=== PATIENT | male | born 1955 | race Caucasian/White ===

== ENCOUNTER 2021-03-05 06:38 | Outpatient (REF) | payer MEDICARE, SELFPAY ==
[2021-03-05 11:54] LABS: Alanine Aminotransferase 9 U/L (0-40); Albumin Level 4.4 g/dL (3.5-5.0); Alkaline Phosphatase 63 U/L (39-117); Anion Gap 17 (12-20); Aspartate Amino Transferase 18 U/L (5-37); Bilirubin Total 0.4 mg/dL (0.0-1.0); Blood Urea Nitrogen 21 mg/dL (9-16); Calcium 9.5 mg/dL (8.4-10.2); Carbon Dioxide 24 mmol/L (22-29); Chloride 106 mmol/L (96-108); Cholesterol 223 mg/dL; Estimated Glomerular Filt Rate > 60; Glucose Fasting 89 mg/dL (60-99); HDL Cholesterol 39 mg/dL; LDL Cholesterol Calculated 154 mg/dl; Potassium 5.3 mmol/L (3.3-5.1); Sodium 142 mmol/L (135-145); Triglycerides 150 mg/dL
[2021-03-05 12:05] LABS: Prostate Specific Antigen Scr 1.94 ng/mL (<0.05-4.0); TSH reflex Free T4 6.37 uIU/mL (0.32-4.0)
[2021-03-05 12:37] LABS: Free T4 (Free Thyroxine) 1.02 ng/dL (0.71-1.85)
== END 2021-03-05 06:39 | disposition home or self-care (01) ==
LOC: HO.HMGCLDS 06:38
PROVIDERS: PCP Nurse Practitioner Family; Visit Provider Nurse Practitioner Family
DX: Z00.00 Encounter for general adult medical examination without abnormal findings (principal); Z12.5 Encounter for screening for malignant neoplasm of prostate
CPT/HCPCS: 36415; 80053; 80061; 84153; 84439; 84443

== ENCOUNTER 2021-03-09 06:08 | Outpatient (REF) | payer MEDICARE, SELFPAY ==
[2021-03-09 11:34] LABS: Anion Gap 16 (12-20); Carbon Dioxide 26 mmol/L (22-29); Chloride 106 mmol/L (96-108); Potassium 5.7 mmol/L (3.3-5.1); Sodium 142 mmol/L (135-145)
[2021-03-09 11:53] LABS: TSH reflex Free T4 4.35 uIU/mL (0.32-4.0)
[2021-03-09 12:27] LABS: Free T4 (Free Thyroxine) 0.93 ng/dL (0.71-1.85)
== END 2021-03-09 06:09 | disposition home or self-care (01) ==
LOC: HO.HMGCLDS 06:08
PROVIDERS: PCP Nurse Practitioner Family; Visit Provider Nurse Practitioner Family
DX: E87.5 Hyperkalemia (principal); R94.6 Abnormal results of thyroid function studies
CPT/HCPCS: 36415; 80051; 84439; 84443

== ENCOUNTER 2021-03-16 06:57 | Outpatient (REF) | payer MEDICARE, SELFPAY ==
[2021-03-16 11:51] LABS: Anion Gap 12 (12-20); Carbon Dioxide 27 mmol/L (22-29); Chloride 107 mmol/L (96-108); Potassium 4.8 mmol/L (3.3-5.1); Sodium 141 mmol/L (135-145)
== END 2021-03-16 06:58 | disposition home or self-care (01) ==
LOC: HO.HMGCLDS 06:57
PROVIDERS: PCP Nurse Practitioner Family; Visit Provider Nurse Practitioner Family
DX: E87.5 Hyperkalemia (principal)
CPT/HCPCS: 36415; 80051

== ENCOUNTER 2022-04-02 15:11 | Outpatient (REF) | payer MEDICARE, SELFPAY ==
--- NOTE | ~2022-04-02 | CT_ITS ---
EXAMINATION: CT CHEST SCREENING CLINICAL INFORMATION: Nicotine dependence. COMPARISON: None. TECHNIQUE: Multidetector volumetric CT imaging of the chest is performed without contrast using low dose technique. Additional 2D coronal and sagittal reformatted images and axial 3D maximum intensity projection (MIP) images are generated on the CT workstation. This CT examination was performed using dose optimization techniques as appropriate, variously including the following: *Automated exposure control *Adjustment of mA and/or kV according to patient size (this includes techniques or standardized protocols for targeted exams where dose is matched to indication/reason for exam; i.e. extremities or head) *Use of iterative reconstruction technique DLP: 59 mGy-cm FINDINGS: LUNGS: There is diffuse centrilobular emphysema. There is a 4 mm nodule right upper lobe anterior segment image 229/6, 4 mm nodule left upper lobe anterior segment axial image 259/6. No additional nodules, mass or consolidation. Minimal atelectatic changes are seen left lower lobe posterior basal segment. MEDIASTINUM: The central trachea and the bronchi are widely patent. The thyroid lobes are symmetric and normal. No abnormal-sized lymph nodes or mass seen. The heart size and the great vessels are normal caliber. No pericardial effusion seen. There is trace coronary artery calcifications present. PLEURA: There is no pleural effusion, mass or thickening. AXILLA: The axilla and the chest wall is unremarkable. UPPER ABDOMEN: Visualized liver, spleen, pancreas and bilateral adrenal glands are unremarkable. OSSEOUS STRUCTURES: No aggressive lytic or sclerotic process seen. There is mild ventral spondylosis lower dorsal and upper lumbar spine. CT/CT lung screening IMPRESSION: Centrilobular emphysema without any acute process. There are 2 small shotty lymph nodes as described above. Consider follow-up chest in one year as per Fleischner guidelines and patient risk factors. ASSESSMENT: Lung-RADS category 2: Benign RECOMMENDATION: Low-dose annual CT chest
== END 2022-04-02 15:12 | disposition home or self-care (01) ==
LOC: HO.CT 15:11
PROVIDERS: PCP Nurse Practitioner Family; Visit Provider Physician Assistant Medical
DX: Z12.2 Encounter for screening for malignant neoplasm of respiratory organs (principal); F17.210 Nicotine dependence, cigarettes, uncomplicated
CPT/HCPCS: 71271; G0296

== ENCOUNTER 2022-07-02 08:11 | Outpatient (REF) | payer MEDICARE, SELFPAY ==
[2022-07-02 11:40] LABS: Hematocrit 44.8 % (42.0-52.0); Hemoglobin 14.8 g/dl (14.0-18.0); Mean Corpuscular Hemoglobin 29.6 pg (27.0-33.0); Mean Corpuscular Volume 89.6 fL (80.0-98.0); Platelet Count 406 X10*3/uL (160-400); Red Cell Distribution Width 12.6 % (11.0-16.0); White Blood Count 7.3 X10*3/uL (4.8-10.8)
[2022-07-02 11:51] LABS: Appearance Urine Clear; Color Urine Yellow; Glucose Urine UA Negative (Negative); Leukocyte Esterase Urine Negative (Negative); Nitrite Urine Negative (Negative); Urine Blood Negative (Negative); Urine Ketones Negative (Negative); Urine Protein Negative (Neg-Trace)
== END 2022-07-02 08:12 | disposition home or self-care (01) ==
LOC: HO.HMGCLDS 08:11
PROVIDERS: PCP Nurse Practitioner Family; Visit Provider Nurse Practitioner Family
DX: Z00.00 Encounter for general adult medical examination without abnormal findings (principal)
CPT/HCPCS: 36415; 81003; 85027

== ENCOUNTER 2022-07-03 06:48 | Outpatient (REF) | payer MEDICARE, SELFPAY ==
[2022-07-03 12:26] LABS: Alanine Aminotransferase 10 U/L (0-40); Albumin Level 4.4 g/dL (3.5-5.0); Alkaline Phosphatase 52 U/L (39-117); Anion Gap 16 (12-20); Aspartate Amino Transferase 16 U/L (5-37); Bilirubin Total 0.2 mg/dL (0.0-1.0); Blood Urea Nitrogen 20 mg/dL (9-16); Calcium 9.8 mg/dL (8.4-10.2); Carbon Dioxide 27 mmol/L (22-29); Chloride 104 mmol/L (96-108); Cholesterol 234 mg/dL; Estimated Glomerular Filt Rate > 60; Glucose Fasting 97 mg/dL (60-99); HDL Cholesterol 50 mg/dL; LDL Cholesterol Calculated 166 mg/dl; Lipase 66 U/L (8-78); Potassium 5.8 mmol/L (3.3-5.1); Sodium 141 mmol/L (135-145); Triglycerides 94 mg/dL
[2022-07-03 12:37] LABS: TSH reflex Free T4 5.28 uIU/mL (0.32-4.0)
[2022-07-03 13:21] LABS: Free T4 (Free Thyroxine) 0.98 ng/dL (0.71-1.85)
== END 2022-07-03 06:49 | disposition home or self-care (01) ==
LOC: HO.HMGCLDS 06:48
PROVIDERS: PCP Nurse Practitioner Family; Visit Provider Nurse Practitioner Family
DX: Z00.00 Encounter for general adult medical examination without abnormal findings (principal); R10.30 Lower abdominal pain, unspecified; Z12.5 Encounter for screening for malignant neoplasm of prostate
CPT/HCPCS: 36415; 80053; 80061; 83690; 84153; 84439; 84443

== ENCOUNTER 2022-07-30 15:25 | Outpatient (REF) | payer MEDICARE, SELFPAY ==
[2022-07-30 16:55] LABS: Anion Gap 13 (12-20); Carbon Dioxide 27 mmol/L (22-29); Chloride 104 mmol/L (96-108); Potassium 5.3 mmol/L (3.3-5.1); Sodium 139 mmol/L (135-145)
== END 2022-07-30 15:26 | disposition home or self-care (01) ==
LOC: HO.HMGCLDS 15:25
PROVIDERS: PCP Nurse Practitioner Family; Visit Provider Nurse Practitioner Family
DX: E87.5 Hyperkalemia (principal)
CPT/HCPCS: 36415; 80051

== ENCOUNTER 2022-08-21 09:50 | Outpatient (REF) | payer MEDICARE, SELFPAY ==
[2022-08-21 11:51] LABS: Anion Gap 10 (12-20); Carbon Dioxide 27 mmol/L (22-29); Chloride 97 mmol/L (96-108); Cholesterol 230 mg/dL; HDL Cholesterol 39 mg/dL; LDL Cholesterol Calculated 173 mg/dl; Potassium 4.3 mmol/L (3.3-5.1); Sodium 130 mmol/L (135-145); Triglycerides 91 mg/dL
== END 2022-08-21 09:51 | disposition home or self-care (01) ==
LOC: HO.HMGCLDS 09:50
PROVIDERS: PCP Nurse Practitioner Family; Visit Provider Nurse Practitioner Family
DX: E87.5 Hyperkalemia (principal); E78.5 Hyperlipidemia, unspecified
CPT/HCPCS: 36415; 80051; 80061

== ENCOUNTER 2023-08-19 14:41 | Outpatient (REF) | payer MEDICARE, SELFPAY ==
--- NOTE | ~2023-08-19 | CT_ITS ---
EXAMINATION: CT CHEST LOW-DOSE SCREENING WITHOUT CONTRAST HISTORY: Asymptomatic patient meeting criteria for lung screening. PATIENT PACK-YEAR HISTORY: 51 Current Smoker: Yes If former smoker, years since quitting: COMPARISON: 04/02/2022 TECHNIQUE: Multidetector volumetric non-contrast CT imaging of the chest was performed using low dose screening CT technique. Axial thin section 0.625 mm reformations in soft tissue and lung windows were obtained. Sagittal and coronal reformations were obtained. Axial MIP images were also created and reviewed. RECONSTRUCTED WIDTH: 1.25 mm x 1.25 mm TOTAL EXAM DLP: 59 mGy-cm CTDIvol: 1.30 L mGy FINDINGS: LUNGS: Mild to moderate centrilobular emphysema. 3 mm left upper lobe nodule on image 247. Central bronchial wall thickening. No focal consolidation. Central airways are patent. PLEURA: No pleural effusion. LYMPH NODES: No bulky mediastinal, hilar or axillary lymphadenopathy. MEDIASTINUM: Heart size is normal. Great vessels are of normal caliber. No pericardial effusion. CORONARY ARTERY CALCIFICATIONS: Mild. CHEST WALL/BREASTS: No acute abnormality. UPPER ABDOMEN: This study was performed without contrast and with lower than standard dose, reducing the sensitivity for detection of small lesions in the upper abdomen. OSSEOUS STRUCTURES: No destructive bone lesions. CT/CT lung screening IMPRESSION: No suspicious pulmonary nodule. LUNG-RADS CATEGORY ASSESSMENT: 2. Benign appearance or behavior. Nodules with a very low likelihood of becoming a clinically active cancer due to size or lack of growth. Continue annual screening with low-dose CT in 12 months. Probability of malignancy less than 1%. INCIDENTAL FINDINGS (S CATEGORY): Finding: No incidental findings. Significance category: Normal or normal variant. RECOMMENDATION: Low dose lung CT. overall in 1 year. Visual estimate of coronary calcified plaque burden: Mild. However, this exam cannot replace a dedicated cardiac CT calcium score for accurate assessment. LUNG-RADS CATEGORY: 2 -- BENIGN
== END 2023-08-19 14:42 | disposition home or self-care (01) ==
LOC: HO.CT 14:41
PROVIDERS: PCP Nurse Practitioner Family; Visit Provider Physician Assistant Medical
DX: Z12.2 Encounter for screening for malignant neoplasm of respiratory organs (principal); F17.210 Nicotine dependence, cigarettes, uncomplicated
CPT/HCPCS: 71271

== ENCOUNTER 2024-03-29 12:27 | Outpatient (AMB) | payer MEDICARE, SELFPAY ==
--- NOTE | 2024-03-29 12:32 | MHC.PC.OV ---
Vital Signs 03/29/24 12:35 Height 5 ft 7 in Weight 158 lb BMI 24.7 BP 122/70 Blood Pressure Location Rt brachial Position Sitting Pulse 96 Pulse Source Pulse Oximeter Pulse Oximetry (%) 96 Oxygen Delivery Method Room Air Intake Visit Reasons: Annual PE Intake Note: Patient here for physical exam. Colon: 2020 due 2030 Allergies No Known Allergies Allergy (Verified 03/29/24 12:36) Tobacco use date assessed: 03/29/24 Dental Screening Dental Screen Date: 03/29/24 Did you have a dental visit in the last 12 months?: Yes Did you have a dental problem in the last 6 months where you did not have access to dental care?: No Was dental information given to patient?: Patient has dentist HPI Annual PE HPI Details Pt is here for a PE. Will order labs. Colon screen is up to date. Due for PSA, will order. Denies dribbling with urination, weak stream, and frequent nocturia. Pt is a smoker, goes for low-dose CTs. Pt has a cystic lesion above his left testicle. Will order US. [facility] Medical History Personal history of nicotine dependence History of diverticulitis Surgical History History of colectomy History of tonsillectomy History of colonoscopy Family History Father No problems noted. Mother Stroke Social History Housing: House Alcohol intake: current Alcohol intake frequency: does not drink Patient Tobacco Use Status: Current everyday Tobacco user Tobacco use type: Cigarette Cigarette Packs Per Day: 1 Cigarettes Per Day: 20 Years Smoked: (onset 15, 1ppd x 51yrs, 50pyh) e-Cigarette/Vaping Use: Never Used service: No Current occupational status: retired Cognitive needs: No Hearing needs: No Vision needs: No Questionnaire PHQ-9 Over the last 2 weeks, how often have you been bothered by any of the following problems? 1. Little interest or pleasure in doing things: not at all 2. Feeling down, depressed, or hopeless: not at all 3. Trouble falling or staying asleep, or sleeping too much: not at all 4. Feeling tired or having little energy: several days 5. Poor appetite or overeating: not at all 6. Feeling bad about yourself - or that you are a failure or have let yourself or your family down: not at all 7. Trouble concentrating on things, such as reading the newspaper or watching television: several days 8. Moving or speaking so slowly that other people could have noticed. Or the opposite - being so fidgety or restless that you have been moving around a lot more than usual: not at all 9. Thoughts that you would be better off or of hurting yourself in some way: not at all Total score: 2 Depression Screening Interpretation: Negative Depression Screening Done: Yes 76950 - PHQ-9 Billing: Yes Source: Developed by Drs. Daniel George, Henrietta Hernandez, Tomy Ren and colleagues, with an educational martita from [employer]. Thrive Questionnaire Date Thrive assessed: 03/29/24 I am a: Patient What is your living situation today?: I have a steady place to live Within the past 12 months, did the food you bought not last and you didn't have the money to get more?: Never true Within the past 12 months, did you worry whether your food would run out before you got money to buy more?: Never true Do you have trouble getting transportation to medical appointments?: No Do you have trouble paying your heating and electricity bill?: No Do you have trouble taking care of your child, family member or friend?: No Do you have trouble with day-to-day activities such as bathing, preparing meals, shopping, managing finances, etc.?: No Are you currently unemployed and looking for a job?: No Are you interested in more education?: No Currently or been in a relationship where the following occur: No concerns reported THRIVE Score: 0 AUDIT C Alcohol Use Questionnaire (AUDIT-C) 1. How often do you have a drink containing alcohol?: Never 3. How often do you have six or more drinks on one occasion?: Never Total Score: 0 Score Reviewed/Action Taken: No GRACE-7 AMB Questionnaire GRACE-7 Date GRACE - 7 assessed: 03/29/24 Feeling nervous, anxious, or on edge: 1 = Several days Not being able to stop or control worryin = Several days Worrying too much about different things: 1 = Several days Trouble relaxin = Several days Being so restless that it is hard to sit still: 0 = Not at all Becoming easily annoyed or irritable: 0 = Not at all Feeling afraid as if something awful might happen: 0 = Not at all Total GRACE-7 score (0-4 normal; 5-9 mild; 10-14 moderate; 15-21 severe): 4 Source: Developed by Drs. Daniel George, Henrietta Hernandez, Tomy Ren and colleagues, with an educational martita from [employer]. GRACE-7 Assessment Billing GRACE-7 Assessment Tool: GRACE-7 Assessment 77136 Review of Systems Const Denies chills and Denies fever(s) Eyes Denies blurry vision ENT Denies vertigo, Denies dizziness and Denies sore throat Card Denies chest pain at rest, Denies chest pain with activity, Denies diaphoresis, Denies dyspnea and Denies dyspnea on exertion Resp Denies cough, Denies dyspnea, Denies dyspnea on exertion and Denies wheezing GI Denies abdominal pain, Denies melena, Denies hematochezia, Denies constipation, Denies diarrhea and Denies loose stools Denies hematuria Musc Denies numbness and Denies tingling Skin/Breast Denies lesions Neuro Denies vertigo, Denies dizziness, Denies numbness and Denies tingling Psych Denies anxiety, Denies depression, Denies homicidal ideation, Denies suicidal ideation and Denies other (substance abuse) Aller/Immun Denies wheezing Physical exam (Primary Care) Vital Signs: Last Vital Signs Pulse 96 03/29/24 12:35 BP 122/70 03/29/24 12:35 Pulse Ox 96 03/29/24 12:35 Oxygen Delivery Method Room Air 03/29/24 12:35 BMI result Body Mass Index 24.7 Tobacco/Smoking Status: Tobacco use Status Tobacco use date assessed 03/29/24 03/29/24 12:38 Patient Tobacco Use Status Current everyday Tobacco 03/29/24 12:33 Tobacco use type Cigarette 03/29/24 12:33 e-Cigarette/Vaping Use Never Used 03/29/24 12:33 PHQ-9: PHQ-9 Score PHQ-9: Total score 2 03/29/24 13:16 Depression Screening Interpretation: Negative Thrive Assessment: Date of Thrive Assessment Date Thrive assessed 03/29/24 03/29/24 13:16 Currently or been in a relationship where the following occur: No concerns reported Const General: cooperative Nutritional Appearance: well nourished Orientation/consciousness: patient oriented x3 HENMT Head: Yes normal to inspection, Yes normocephalic and Yes atraumatic Ears: TM's normal bilaterally Eyes General: appearance normal, both eyes and all related structures Alignment and Position: alignment normal and position normal Neck Neck: Yes normal visual inspection and Yes no lymphadenopathy Thyroid: Thyroid normal Resp Other: lungs slightly diminished though moving air Effort & Inspection: normal respiratory effort Cardio Rate: regular rate Rhythm: regular rhythm Heart sounds: S1 normal heart sound present, S2 normal heart sound present and no murmurs GI Palpation (GI): Soft to palpation and nontender Auscultation: normal bowel sounds Other: cystic lesion above left testicle Male General Exam: Yes normal external exam Penis: normal penis Scrotum: scrotum normal, testes descended bilaterally and no inguinal hernias Testes: no testicular mass Skin Rashes: no rashes Neuro General: patient oriented x3, moves all extremities, no focal motor deficits and deep tendon reflexes 2+ bilaterally Romberg Test: Negative Psych Appearance: grossly normal Mental Status: mental status grossly normal Speech and movement: Normal speech and movement present Affect: normal affect Attitude: cooperative Thought process: Normal thought process present Thought content: Normal thought content present Insight: Good insight present (Psych) Judgement: Good judgement present (Psych) Assessment and Plan Assessment & Plan (1) Encounter for physical examination: Code(s): Z00.00 - Encounter for general adult medical examination without abnormal findings Plan: Labs ordered (2) Screening PSA (prostate specific antigen): Code(s): Z12.5 - Encounter for screening for malignant neoplasm of prostate Plan: PSA ordered (3) Scrotal cyst: Code(s): L72.9 - Follicular cyst of the skin and subcutaneous tissue, unspecified Plan: US ordered Plan The patient agreed to the use of a senior medical director for this encounter. Scribed for TINO So by samantha Lobato scribe, on 03/29/2024 at 12:55 EST. Orders: Orders Complete Blood Count Auto Diff Today Z00.00 - Encounter for general adult medical examination without abnormal findings Comprehensive [place]. Panel Fast Today Z00.00 - Encounter for general adult medical examination without abnormal findings UA CC w/rflx Micro + Cult Today Z00.00 - Encounter for general adult medical examination without abnormal findings Lipid Panel Today Z00.00 - Encounter for general adult medical examination without abnormal findings Prostate Specific Antigen Scr Today Z00.00 - Encounter for general adult medical examination without abnormal findings, Z12.5 - Encounter for screening for malignant neoplasm of prostate TSH reflex Free T4 Today Z00.00 - Encounter for general adult medical examination without abnormal findings US scrotum Today L72.9 - Follicular cyst of the skin and subcutaneous tissue, unspecified Coding Level of Care Code Est Pt Prev Care >65y(72656) Diagnoses Encounter for physical examination Z00.00 Screening PSA (prostate specific antigen) Z12.5 Scrotal cyst L72.9 Additional Codes GRACE-7 Assessment Billing - GRACE-7 Assessment Tool: GRACE-7 Assessment [id number] ([id number])
[2024-03-29 12:35] VITALS: BP 122/70; PULSE 96; O2SAT 96; BMI 24.7
== END 2024-03-29 13:10 | disposition home or self-care (01) ==
PROVIDERS: PCP Nurse Practitioner Family; Visit Provider Nurse Practitioner Family
DX: Z00.00 Encounter for general adult medical examination without abnormal findings (principal); Z12.5 Encounter for screening for malignant neoplasm of prostate; L72.9 Follicular cyst of the skin and subcutaneous tissue, unspecified
CPT/HCPCS: 99397

== ENCOUNTER 2024-05-03 09:09 | Outpatient (REF) | payer MEDICARE, SELFPAY ==
[2024-05-03 13:05] LABS: Appearance Urine Clear; Color Urine Yellow; Glucose Urine UA Negative (Negative); Leukocyte Esterase Urine Negative (Negative); Nitrite Urine Negative (Negative); Specific Gravity - Urine <= 1.005 (1.005-1.025); Urine Blood Negative (Negative); Urine Ketones Negative (Negative); Urine Protein Negative (Neg-Trace)
[2024-05-03 13:07] LABS: MANUAL DIFF FLAG NO
[2024-05-03 13:11] LABS: Basophils Absolute Auto 0.1 X10*3/uL (0.0-0.2); Basophils Percent Auto 0.7 % (0-2); Eosinophils Absolute Auto 0.2 X10*3/uL (0.0-0.4); Eosinophils Percent Auto 2.9 % (0-4); Hematocrit 45.4 % (42.0-52.0); Hemoglobin 15.3 g/dl (14.0-18.0); Imm Gran Abs Auto 0.03 X10*3/uL (0.00-0.03); Imm Gran Pct Auto 0.4 % (0.0-0.4); Lymphocytes Percent Auto 29.5 % (20-40); Mean Corpuscular HGB Conc 33.7 g/dl (31.0-36.0); Mean Corpuscular Hemoglobin 30.5 pg (27.0-33.0); Mean Corpuscular Volume 90.4 fL (80.0-98.0); Mean Platelet Volume 10.7 fL (9.4-12.4); Monocytes Absolute Auto 0.8 X10*3/uL (0.1-1.2); Monocytes Percent Auto 11.3 % (2-11); Neutrophils Absolute Auto 3.8 x10*3/uL (2.0-8.3); Neutrophils Percent Auto 55.2 % (45-73); Platelet Count 386 X10*3/uL (160-400); Red Blood Count 5.02 X10*6/uL (4.60-5.80); Red Cell Distribution Width 13.1 % (11.0-16.0); White Blood Count 6.8 X10*3/uL (4.8-10.8)
[2024-05-03 13:46] LABS: Alanine Aminotransferase 11 U/L (0-40); Albumin Level 4.4 g/dL (3.5-5.0); Alkaline Phosphatase 47 U/L (39-117); Anion Gap 9 (12-20); Aspartate Amino Transferase 17 U/L (5-37); Bilirubin Total 0.4 mg/dL (0.0-1.0); Blood Urea Nitrogen 10 mg/dL (9-16); Calcium 9.1 mg/dL (8.4-10.2); Carbon Dioxide 28 mmol/L (22-29); Chloride 105 mmol/L (96-108); Cholesterol 182 mg/dL (<200); Estimated Glomerular Filt Rate > 60; Glucose Fasting 97 mg/dL (60-99); HDL Cholesterol 46 mg/dL (>40); LDL Cholesterol Calculated 119 mg/dL (<100); Potassium 4.3 mmol/L (3.3-5.1); Sodium 138 mmol/L (135-145); Total Protein 7.3 g/dL (6.5-8.0); Triglycerides 87 mg/dL (<150)
[2024-05-03 13:49] LABS: TSH reflex Free T4 4.69 uIU/mL (0.32-4.0)
[2024-05-03 13:52] LABS: Prostate Specific Antigen Scr 2.13 ng/mL (<0.05-4.0)
[2024-05-03 14:44] LABS: Free T4 (Free Thyroxine) 0.95 ng/dL (0.71-1.85)
== END 2024-05-03 09:10 | disposition home or self-care (01) ==
LOC: HO.HMGCLDS 09:09
PROVIDERS: PCP Nurse Practitioner Family; Visit Provider Nurse Practitioner Family
DX: Z00.00 Encounter for general adult medical examination without abnormal findings (principal); Z12.5 Encounter for screening for malignant neoplasm of prostate
CPT/HCPCS: 36415; 80053; 80061; 81003; 84153; 84439; 84443; 85025

== ENCOUNTER 2024-07-09 09:58 | Outpatient (REF) | payer MEDICARE, SELFPAY | END 2024-07-09 09:59 | disposition home or self-care (01) | LOC: HO.HMGCX 09:58 | PROVIDERS: PCP Nurse Practitioner Family; Visit Provider Nurse Practitioner Family | DX: L72.9 Follicular cyst of the skin and subcutaneous tissue, unspecified (principal) | CPT/HCPCS: 76870 ==

== ENCOUNTER 2024-08-30 08:35 | Outpatient (REF) | payer MEDICARE, SELFPAY | END 2024-08-30 08:36 | disposition home or self-care (01) | LOC: HO.CT 08:35 | PROVIDERS: PCP Nurse Practitioner Family; Visit Provider Physician Assistant Medical | DX: Z12.2 Encounter for screening for malignant neoplasm of respiratory organs (principal); F17.210 Nicotine dependence, cigarettes, uncomplicated | CPT/HCPCS: 71271 ==

== ENCOUNTER → 2024-08-30 08:37 | Outpatient (BNV) | payer MEDICARE, SELFPAY | PROVIDERS: PCP Nurse Practitioner Family; Visit Provider Radiology Diagnostic Radiology | DX: Z12.2 Encounter for screening for malignant neoplasm of respiratory organs (principal); Z87.891 Personal history of nicotine dependence | CPT/HCPCS: 71271 ==

== ENCOUNTER 2025-01-02 13:16 | Outpatient (AMB) | payer MEDICARE, SELFPAY ==
--- NOTE | 2025-01-02 13:21 | MHC.OFFWIV ---
Intake Vital Signs 01/02/25 13:22 Weight 166 lb BP 130/80 Blood Pressure Location Rt brachial Position Sitting Pulse 74 Pulse Source Pulse Oximeter Temp 97.8 F Temp Source Oral Pulse Oximetry (%) 97 Oxygen Delivery Method Room Air Intake Visit Reasons: EP Ear infection, vertigo, chest congestion Intake Note: Patient here for chest congestion, off balance and left ear pain that has been going on for about 2 months. Patient Tobacco Use Status: Current everyday Tobacco user Allergies No Known Allergies Allergy (Verified 01/02/25 13:21) Do you need a note to return to daycare/school/sports/work: No HPI HPI Comments History of Present Illness Details History - The patient is a 69-year-old male presenting with ear pain, dizziness, and cough with phlegm. - Reports left ear pain and dizziness over the past two to three months, with growing concerns about an ear infection. - Experiences ongoing chest congestion with production of phlegm, although denies fever or shortness of breath or wheezing. - Has a history of smoking for 54 years, potentially exacerbating respiratory symptoms. - Inhf-vna-xhuytva medications have been ineffective in alleviating symptoms. Physical Exam General: Cooperative, healthy appearing, comfortable and no acute distress Orientation/consciousness: Patient oriented x3 Limitations: No limitations Head: Normal to inspection Ears: Hearing grossly normal bilaterally, external ears normal, left TM with bulging, erythema, purulence, right TM with scant fluid Nose: Normal external nose present, Normal nares present and No nasal discharge present Face and sinus: Normal facial exam and Yes sinuses nontender Mouth: Normal oral and palatal mucosa present and moist mucous membranes Throat: Yes tonsils normal, Yes uvula midline. Posterior oropharynx erythema Eyes: Appearance normal, both eyes and all related structures Neck: Normal visual inspection Respiratory: Clear to auscultation bilaterally. Normal respiratory effort, able to speak in complete sentences, Actively coughing, no respiratory distress, not tachypneic, no tripod positioning and no use of accessory muscles Cardiovascular: Regular rate and rhythm. Normal S1 and S2 Skin: No rashes or lesions noted Neuro: Patient oriented x3 Extremities: Normal to inspection and Yes no clubbing, cyanosis or edema [facility] Medical History (Updated 01/02/25 @ 13:43 by Angelica Romero PA-C) Nicotine dependence, cigarettes, uncomplicated History of diverticulitis Surgical History History of colectomy History of tonsillectomy History of colonoscopy Family History Father No problems noted. Mother Stroke Social History Housing: House Alcohol intake: current Alcohol intake frequency: does not drink Patient Tobacco Use Status: Current everyday Tobacco user Tobacco use type: Cigarette Cigarette Packs Per Day: 1 Cigarettes Per Day: 20 Years Smoked: (onset 15, 1ppd x 51yrs, 50pyh) e-Cigarette/Vaping Use: Never Used service: No Current occupational status: retired Cognitive needs: No Hearing needs: No Vision needs: No Review of Systems Const All systems reviewed & are unremarkable except as noted in HPI and below Physical Exam Vital Signs: Last Vital Signs Temp 97.8 F 01/02/25 13:22 Pulse 74 01/02/25 13:22 BP 130/80 01/02/25 13:22 Pulse Ox 97 01/02/25 13:22 Oxygen Delivery Method Room Air 01/02/25 13:22 Assessment & Plan Assessment & Plan (1) Otitis media of left ear: Code(s): H66.92 - Otitis media, unspecified, left ear Qualifiers: Otitis media type: mucoid Chronicity: acute Qualified Code(s): H65.192 - Other acute nonsuppurative otitis media, left ear Plan: VSS, pt well appearing and PE remarkable for OM left ear. The patient will commence a seven-day course of Amoxicillin 500 mg twice daily to treat the acute otitis media, focused on addressing both ear infection symptoms and dizziness. Continued use of decongestants like Margot-D is recommended to manage chest congestion associated with chronic tobacco use. The patient may discontinue the antibiotics after five days if symptoms improve; if not, the full course should be completed. Prescriptions have been sent to the specified pharmacy, and the patient has been instructed to observe for symptom resolution and to contact a healthcare provider if symptoms persist. Patient was informed and verbally consented to the use of an ambient scribe for clinic note documentation during this visit Medications: New amoxicillin 875 mg PO Q12H 14 tabs 0RF Coding Level of Care Code Est Pt Level 3 (29664) Diagnoses Acute mucoid otitis media of left ear H65.192 Otitis media type: mucoid Chronicity: acute
[2025-01-02 13:22] VITALS: BP 130/80; PULSE 74; TEMP 36.6; O2SAT 97
--- OUTSIDE RECORDS SUMMARY | 2025-01-02 15:43 | XMS_ITS | Clinical Summary ---
Author Organization [facility] ity Address [address] [place] [address] Care Team Providers Care Pattern Finisher Name Role Phone Unavailable Primary Care Provider Unavailabl e Social History Tobacco Use Types Packs/Day Years Used Date Smoking Tobacco: Never Assessed Sex and Gender Information Value Date Recorded Sex Assigned at Not on file Legal Sex Male 9:41 PM EST Gender Identity Not on file Sexual Orientation Not on file Plan of Treatment Health Maintenance Due Date Last Done Comments DTaP,Tdap,and Td Vaccines (1 - Tdap) 12/19/1974 Pneumococcal Vaccine: 50+ Ye ars (1 of 1 - PCV) 12/19/2005 Zoster Vaccines (1 of 2) 12/19/2005 COVID-19 Vaccine ( - 2023-2 5 season) 2024 Influenza Vaccine (Season Ended) 2025 RSV Immunization Adult Patie nts (1 - 1-dose 75+ series) 12/19/2030 HIB Vaccines Aged Out No longer eligi ble based on patient's age to complete this topic HPV Vaccines Aged Out No longer eligi ble based on patient's age to complete this topic Hepatitis A Vaccines Aged Out No long er eligible based on patient's age to complete this topic Hepatitis B Vaccines Aged Out No long er eligible based on patient's age to complete this topic IPV Vaccines Aged Out No longer eligi ble based on patient's age to complete this topic MMR Vaccines Aged Out No longer eligi ble based on patient's age to complete this topic Meningococcal ACWY Vaccine Aged Out N o longer eligible based on patient's age to complete this topic Meningococcal B Vaccine Aged Out No l onger eligible based on patient's age to complete this topic RSV Immunization Patients Un marvin 20 months Aged Out No longer eligible b ased on patient's age to complete this topic Varicella Vaccines Aged Out No longer eligible based on patient's age to complete this topic
== END 2025-01-02 14:52 | disposition home or self-care (01) ==
PROVIDERS: PCP Nurse Practitioner Family; Visit Provider Physician Assistant
DX: H65.192 Other acute nonsuppurative otitis media, left ear (principal)

== ENCOUNTER → 2025-01-02 13:16 | Outpatient (BNVA) | payer MEDICARE, SELFPAY | PROVIDERS: PCP Nurse Practitioner Family; Visit Provider Physician Assistant | DX: H65.192 Other acute nonsuppurative otitis media, left ear (principal) | CPT/HCPCS: 99212 ==

== ENCOUNTER → 2025-01-11 08:36 | Outpatient (BNVA) | payer MEDICARE, SELFPAY | PROVIDERS: PCP Nurse Practitioner Family ==

== ENCOUNTER 2025-04-17 14:54 | Outpatient (AMB) | payer MEDICARE, SELFPAY ==
--- NOTE | 2025-04-17 15:11 | A.OFFPC_ITS ---
Vital Signs 04/17/25 15:13 Weight 162 lb BP 128/82 Blood Pressure Location Lt brachial Position Sitting Respiration 16 Pulse 88 Pulse Source Pulse Oximeter Pulse Oximetry (%) 96 Oxygen Delivery Method Room Air Intake Visit Reasons: Annual PE Division Director Required: No Accompanied by: Self / Same As Patient Allergies No Known Allergies Allergy (Verified 01/02/25 13:21) Medication List - Last Reconciled 04/17/25 by Jamar Ventura, TAFE TEACHER- amoxicillin-pot clavulanate 875-125 mg 1 tab PO Q12H 10 days clonazepam 1 mg PO DAILY PRN ibuprofen 600 mg PO TID PRN 30 days prednisone 50 mg PO DAILY 6 days rosuvastatin 5 mg PO DAILY 90 days Tobacco use date assessed: 04/17/25 Fall risk assessment: No Falls in past year Last assessed Fall Risk: 04/17/25 Dental Screening Dental Screen Date: 04/17/25 Did you have a dental visit in the last 12 months?: Yes Did you have a dental problem in the last 6 months where you did not have access to dental care?: No Was dental information given to patient?: Patient has dentist HPI Annual PE HPI Details History of Present Illness The patient is a 69-year-old male presenting with a physical exam. He reports polyuria, potentially linked to increased coffee intake. The patient has an artificial eardrum on the left side with reported pressure and erythema, raising concerns for infection. A large cyst superior to the left testicle has been previously assessed via ultrasound. He smokes and participates in regular low-dose CT scans for lung cancer screening, with his colon cancer screening current. Health Maintenance - PSA test planned for prostate cancer s creening - Regular low-dose CT scans for lung can cer screening - Colon cancer screening is up to date Social History - Smokes cigarettes - Increased coffee consumption Review of Systems - Cardiovascular: Denies chest pain - Respiratory: Denies increased shortnes s of breath - Gastrointestinal: Denies abdominal tabby n, constipation, diarrhea - Genitourinary: Reports polyuria - Otolaryngological: Reports pressure in left ear -denies any si or hi, denies any fevers, chills, n/v Physical Exam General: Cooperative, healthy appearing, comfortable, no acute distress and well developed Orientation: Patient oriented x3 Limitations: No limitations Head: Normal to inspection Ears: Hearing grossly normal bilaterally, artificial eardrum left, erythematous, treating for ear infection Nose: Normal external nose present Face and sinus: Normal facial exam Eyes: Appearance normal, both eyes and all related structures Neck: Normal visual inspection and Yes full ROM Respiratory: Slightly diminished bilaterally, able to speak in complete sentences Cardiovascular: Regular rate and rhythm. Normal S1 and S2 GI: Normal to inspection. Soft to palpation and nontender : Large cyst superior to left testicle, and no hernias appreciated Skin: No rashes or lesions noted Neuro: Patient oriented x3 Extremities: Normal to inspection Results - Ultrasound: Large cyst superior to lef t testicle, previously evaluated Plan The patient will have a PSA test for prostate cancer screening. Treatment with Augmentin and prednisone is planned for the left ear with artificial eardrum to address suspected infection and alleviate pressure. The large cyst superior to the left testicle has been previously evaluated, and no further action is required at this time. Smoking cessation support and regular low-dose CT scans for lung cancer screening will continue. Discussion Notes I discussed with the patient the need for a PSA test as part of routine prostate cancer screening. We reviewed the treatment plan for his left ear, including the use of Augmentin and prednisone to address the suspected infection and alleviate pressure. The large cyst superior to the left testicle has been previously evaluated, and no further intervention is necessary at this time. We also discussed the importance of smoking cessation and the continuation of regular low-dose CT scans for lung cancer screening. Patient Instructions - Schedule a PSA test for prostate cance r screening. - Take prescribed Augmentin and predniso ne for ear infection as directed. - Continue regular low-dose CT scans for lung cancer screening. - Consider smoking cessation resources. [facility] Medical History Nicotine dependence, cigarettes, uncomplicated History of diverticulitis Surgical History History of colectomy History of tonsillectomy History of colonoscopy Family History Father No problems noted. Mother Stroke Social History Housing: House Alcohol intake: current Alcohol intake frequency: does not drink Patient Tobacco Use Status: Current everyday Tobacco user Tobacco use type: Cigarette Cigarette Packs Per Day: 1 Cigarettes Per Day: 20 Years Smoked: (onset 15, 1ppd x 51yrs, 50pyh) Packs Per Year: 0 Packs per year/per ci.00 e-Cigarette/Vaping Use: Never Used service: No Current occupational status: retired Cognitive needs: No Hearing needs: No Vision needs: No Questionnaire Thrive Questionnaire Date Thrive assessed: 04/14/25 I am a: Patient What is your living situation today?: I have a steady place to live Within the past 12 months, did the food you bought not last and you didn't have the money to get more?: Never true Within the past 12 months, did you worry whether your food would run out before you got money to buy more?: Never true Do you have trouble paying for medicines?: No Do you have trouble getting transportation to medical appointments?: No Do you have trouble paying your heating and electricity bill?: No Do you have trouble taking care of your child, family member or friend?: No Do you have trouble with day-to-day activities such as bathing, preparing meals, shopping, managing finances, etc.?: No Are you currently unemployed and looking for a job?: No Are you interested in more education?: No THRIVE Score: 0 AUDIT C Alcohol Use Questionnaire (AUDIT-C) 1. How often do you have a drink containing alcohol?: Never Total Score: 0 GRACE-7 AMB Questionnaire GRACE-7 Date GRACE - 7 assessed: 03/29/24 Feeling nervous, anxious, or on edge: 0 = Not at all Not being able to stop or control worryin = Not at all Worrying too much about different things: 0 = Not at all Trouble relaxin = Not at all Being so restless that it is hard to sit still: 0 = Not at all Becoming easily annoyed or irritable: 0 = Not at all Feeling afraid as if something awful might happen: 0 = Not at all Total GRACE-7 score (0-4 normal; 5-9 mild; 10-14 moderate; 15-21 severe): 0 Source: Developed by Drs. Daniel George, Henrietta HernandezTomy and colleagues, with an educational martita from [employer]. Physical exam (Primary Care) Vital Signs: Last Vital Signs Pulse 88 04/17/25 15:13 Resp 16 04/17/25 15:13 BP 128/82 04/17/25 15:13 Pulse Ox 96 04/17/25 15:13 Oxygen Delivery Method Room Air 04/17/25 15:13 Tobacco/Smoking Status: Tobacco use Status Tobacco use date assessed 04/17/25 04/17/25 15:17 Patient Tobacco Use Status Current everyday Tobacco 04/17/25 15:17 Tobacco use type Cigarette 04/17/25 15:17 e-Cigarette/Vaping Use Never Used 04/17/25 15:17 Thrive Assessment: Date of Thrive Assessment Date Thrive assessed 04/14/25 04/17/25 15:17 Coding Level of Care Code Est Pt Prev Care >65y(80213) Diagnoses Encounter for routine adult physical exam with abnormal findings Z00. Screening PSA (prostate specific antigen) Z12.5 Assessment & Plan Assessment & Plan (1) Encounter for routine adult physical exam with abnormal findings: Code(s): Z00.01 - Encounter for general adult medical examination with abnormal findings Category: Medical (2) Screening PSA (prostate specific antigen): Code(s): Z12.5 - Encounter for screening for malignant neoplasm of prostate Category: Medical Plan . Orders: Orders Comprehensive [place]. Panel Fast Today Z00.01 - Encounter for general adult medical examination with abnormal findings Prostate Specific Antigen Scr Today Z12.5 - Encounter for screening for malignant neoplasm of prostate Complete Blood Count Auto Diff Today Z00.01 - Encounter for general adult medical examination with abnormal findings TSH reflex Free T4 Today Z00.01 - Encounter for general adult medical examination with abnormal findings UA CC w/rflx Micro + Cult Today Z00.01 - Encounter for general adult medical examination with abnormal findings Lipid Panel Today Z00.01 - Encounter for general adult medical examination with abnormal findings Medications: New prednisone 50 mg PO DAILY 6 tabs 0RF 6 days amoxicillin-pot clavulanate 875-125 mg 1 tab PO Q12H 20 tabs 0RF 10 days
[2025-04-17 15:13] VITALS: BP 128/82; PULSE 88; RESP 16; O2SAT 96
--- OUTSIDE RECORDS SUMMARY | 2025-04-17 15:40 | XMS_ITS | Clinical Summary ---
Author Organization [facility] ity Address [address] [place] [address] Care Team Providers Care Wire Sawyer Name Role Phone Unavailable Primary Care Provider [...] Vaccine ( - 2023-2 5 season) 2024 Depression Screening 09/19/2024 Influenza Vaccine (#1) 2025 RSV Immunization Adult Patie nts (1 [...]
== END 2025-04-17 16:00 | disposition home or self-care (01) ==
LOC: HO.HMCC 14:55
PROVIDERS: PCP Nurse Practitioner Family; Visit Provider Nurse Practitioner Family
DX: Z00.01 Encounter for general adult medical examination with abnormal findings (principal); Z12.5 Encounter for screening for malignant neoplasm of prostate

== ENCOUNTER → 2025-04-17 14:54 | Outpatient (BNVA) | payer MEDICARE, SELFPAY | PROVIDERS: PCP Nurse Practitioner Family; Visit Provider Nurse Practitioner Family | DX: Z00.00 Encounter for general adult medical examination without abnormal findings (principal); Z28.21 Immunization not carried out because of patient refusal | CPT/HCPCS: 99397 ==

== ENCOUNTER 2025-04-30 06:26 | Outpatient (REF) | payer MEDICARE, SELFPAY ==
--- OUTSIDE RECORDS SUMMARY | 2025-04-30 06:28 | XMS_ITS | Clinical Summary ---
Author Organization [facility] ity Address [address] [place] [address] Care Team Providers Care Audio/Video Engineer Name Role Phone Unavailable Primary Care Provider [...]
[2025-04-30 10:06] LABS: MANUAL DIFF FLAG NO
[2025-04-30 10:12] LABS: Appearance Urine Clear; Glucose Urine UA Negative (Negative); PH 5.0 (5.0-9.0); Specific Gravity - Urine 1.015 (1.005-1.025)
[2025-04-30 10:19] LABS: Hematocrit 45.5 % (42.0-52.0); Hemoglobin 15.0 g/dl (14.0-18.0); Imm Gran Abs Auto 0.04 X10*3/uL (0.00-0.03); Imm Gran Pct Auto 0.5 % (0.0-0.4); Lymphocytes Absolute Auto 2.5 X10*3/uL (1.2-4.9); Mean Corpuscular HGB Conc 33.0 g/dl (31.0-36.0); Mean Corpuscular Hemoglobin 30.2 pg (27.0-33.0); Mean Corpuscular Volume 91.5 fL (80.0-98.0); NRBC Abs Auto 0.000 X10*3/uL (0.0-0.012); NRBC Pct Auto 0.0 /100WBC (0.0-0.2); Platelet Count 346 X10*3/uL (160-400); Red Blood Count 4.97 X10*6/uL (4.60-5.80); White Blood Count 8.8 X10*3/uL (4.8-10.8)
[2025-04-30 10:44] LABS: Alanine Aminotransferase 17 U/L (0-40); Albumin Level 4.2 g/dL (3.5-5.0); Alkaline Phosphatase 46 U/L (39-117); Anion Gap 12 (12-20); Aspartate Amino Transferase 27 U/L (5-37); Blood Urea Nitrogen 18 mg/dL (9-16); Calcium 9.3 mg/dL (8.4-10.2); Carbon Dioxide 29 mmol/L (22-29); Chloride 107 mmol/L (96-108); Cholesterol 185 mg/dL (<200); Estimated Glomerular Filt Rate > 60; HDL Cholesterol 44 mg/dL (>40); Potassium 5.2 mmol/L (3.3-5.1); Sodium 143 mmol/L (135-145); Total Protein 6.8 g/dL (6.5-8.0); Triglycerides 88 mg/dL (<150)
[2025-04-30 11:16] LABS: Free T4 (Free Thyroxine) 0.93 ng/dL (0.71-1.85)
== END 2025-04-30 06:27 | disposition home or self-care (01) ==
LOC: HO.HMGCLDS 06:26
PROVIDERS: PCP Nurse Practitioner Family; Visit Provider Nurse Practitioner Family
DX: Z00.01 Encounter for general adult medical examination with abnormal findings (principal); Z12.5 Encounter for screening for malignant neoplasm of prostate; Z13.6 Encounter for screening for cardiovascular disorders; Z13.29 Encounter for screening for other suspected endocrine disorder
CPT/HCPCS: 36415; 80053; 80061; 81003; 84153; 84439; 84443; 85025

== ENCOUNTER 2025-05-07 08:49 | Outpatient (REF) | payer MEDICARE, SELFPAY ==
--- OUTSIDE RECORDS SUMMARY | 2025-05-07 09:37 | XMS_ITS | Clinical Summary ---
Author Organization [facility] ity Address [address] [place] [address] Care Team Providers Care Partition Assembly Machine Operator Name Role Phone Unavailable Primary Care Provider [...]
[2025-05-07 10:50] LABS: Alanine Aminotransferase 18 U/L (0-40); Albumin Level 4.5 g/dL (3.5-5.0); Alkaline Phosphatase 50 U/L (39-117); Anion Gap 13 (12-20); Aspartate Amino Transferase 24 U/L (5-37); Blood Urea Nitrogen 20 mg/dL (9-16); Calcium 9.8 mg/dL (8.4-10.2); Carbon Dioxide 27 mmol/L (22-29); Chloride 105 mmol/L (96-108); Estimated Glomerular Filt Rate > 60; Potassium 5.3 mmol/L (3.3-5.1); Sodium 140 mmol/L (135-145); Total Protein 7.2 g/dL (6.5-8.0)
[2025-05-07 11:47] LABS: Free T4 (Free Thyroxine) 0.96 ng/dL (0.71-1.85)
== END 2025-05-07 08:50 | disposition home or self-care (01) ==
LOC: HO.HMGCLDS 08:49
PROVIDERS: PCP Nurse Practitioner Family; Visit Provider Nurse Practitioner Family
DX: E87.5 Hyperkalemia (principal); R79.89 Other specified abnormal findings of blood chemistry
CPT/HCPCS: 36415; 80053; 84439; 84443; 86376

== ENCOUNTER 2025-06-13 10:26 | Outpatient (REF) | payer MEDICARE, SELFPAY ==
--- NOTE | ~2025-06-13 | US_ITS ---
EXAMINATION: US THYROID HISTORY: R79.89 - Other specified abnormal findings of blood chemistry TECHNIQUE: Real-time grayscale ultrasound imaging was performed and images were reviewed. COMPARISON: There are no prior studies available for comparison. FINDINGS: SIZE: The right thyroid lobe measures 4.1 x 1.8 x 1.4 cm. The left thyroid lobe measures 4.1 x 1.2 x 1.4 cm. The isthmus measures 4 mm. FLOW: Flow to the gland is normal. ECHOGENICITY: The echotexture of the gland is homogeneous. NODULES: No nodules are identified. US/US thyroid IMPRESSION: Unremarkable thyroid ultrasound. ACR TI-RADS Guidelines TR1 (0 points): Benign. No follow-up or biopsy required TR2 (2 points): Not Suspicious. No biopsy or follow up indicated TR3 (3 points): Mildly Suspicious. FNA if >= 2.5 cm, Follow if >= 1.5 cm TR4 (4-6 points): Moderately Suspicious. FNA if >= 1.5 cm, Follow if >= 1.0 cm TR5 (>=7 points): Highly Suspicious. FNA if >= 1.0 cm, Follow if >= 0.5 cm Electronically signed by: Daniel Squires MD 06/13/2025 10:47 AM EDT
--- OUTSIDE RECORDS SUMMARY | 2025-06-13 13:06 | XMS_ITS | Clinical Summary ---
Author Organization [facility] ity Address [address] [place] [address] Care Team Providers Care Wildlife Manager Name Role Phone Unavailable Primary Care Provider [...] 12/19/2005 Zoster Vaccines (1 of 2) 12/19/2005 Depression Screening 09/19/2024 COVID-19 Vaccine (1 - 2023-2 5 season) 2025 Influenza Vaccine (#1) 2025 RSV Immunization Adult [...]
== END 2025-06-13 10:27 | disposition home or self-care (01) ==
LOC: HO.HMGCX 10:26
PROVIDERS: PCP Nurse Practitioner Family; Visit Provider Nurse Practitioner Family
DX: R79.89 Other specified abnormal findings of blood chemistry (principal)
CPT/HCPCS: 76536

== ENCOUNTER → 2025-06-13 10:29 | Outpatient (BNV) | payer MEDICARE, SELFPAY | PROVIDERS: PCP Nurse Practitioner Family; Visit Provider Radiology Diagnostic Radiology | DX: R79.89 Other specified abnormal findings of blood chemistry (principal) | CPT/HCPCS: 76536 ==

== ENCOUNTER 2025-09-17 07:15 | Outpatient (REF) | payer MEDICARE, SELFPAY ==
--- NOTE | ~2025-09-17 | CT_ITS ---
EXAMINATION: CT LUNG SCREENING HISTORY: F17.210 - Nicotine dependence, cigarettes, uncomplicated TECHNIQUE: Low dose axial images were obtained from the sternal notch to upper abdomen without IV contrast per standard departmental protocol. Sagittal and coronal reformatted images were also obtained and reviewed. One or more of the following techniques was used for dose reduction: Automated exposure control, adjustment of the mA and/or kV according to patient size, use of iterative reconstruction technique. DLP: 61 mGy-cm COMPARISON: Comparison is made with the prior examination dated 08/30/2024. FINDINGS: Lung nodules: There are 2 mm nodules in the right upper lobe (series 5, image 70) and in the left upper lobe (series 5, image 28). No suspicious pulmonary nodules are identified. Emphysema: mild Coronary Calcification: mild Aortic Arch Calcification: mild Potentially Significant Incidentals : none Additional Chest Findings: There is no pleural or pericardial effusion. No mediastinal or axillary lymphadenopathy is identified. Visualized upper abdomen: The visualized portions of the liver, spleen, and adrenals have an unremarkable unenhanced appearance. CT/CT lung screening IMPRESSION: No suspicious pulmonary nodules are identified. LUNG-RADS ASSESSMENT: Lung-RADS 2: Benign MANAGEMENT: Continue annual screening with LDCT in 12 months Category S: N/A Electronically signed by: Daniel Squires MD 09/17/2025 08:58 AM [facility]
--- OUTSIDE RECORDS SUMMARY | 2025-09-17 08:54 | XMS_ITS | Clinical Summary ---
Author Organization [facility] ity Address [address] [place] [address] Care Team Providers Care Steward/Stewardess Wine Name Role Phone Unavailable Primary Care Provider [...] Depression Screening 09/19/2024 COVID-19 Vaccine (1 - 2024-2 6 season) 2025 Influenza Vaccine (#1) 2025 RSV [...]
== END 2025-09-17 07:16 ==
LOC: HO.CT 07:15
PROVIDERS: PCP Nurse Practitioner Family; Visit Provider Physician Assistant Medical
DX: Z12.2 Encounter for screening for malignant neoplasm of respiratory organs (principal); F17.210 Nicotine dependence, cigarettes, uncomplicated
CPT/HCPCS: 71271

== ENCOUNTER → 2025-09-17 07:17 | Outpatient (BNV) | payer MEDICARE, SELFPAY | PROVIDERS: PCP Nurse Practitioner Family; Visit Provider Radiology Diagnostic Radiology | DX: F17.210 Nicotine dependence, cigarettes, uncomplicated (principal) | CPT/HCPCS: 71271 ==